=== PATIENT | female | born 1975 | race Caucasian/White ===

== ENCOUNTER 2017-08-20 17:30 | Inpatient (IN) ==
[2017-08-20] MEDS ORDERED: ALBUTEROL/IPRATROPIUM 3 ML NEB RESP TX STA (18:52)
[2017-08-20] MEDS ORDERED: methylPREDNISolone SOD SUC 125 MG/2 ML VIAL IV STA (18:52)
[2017-08-20] MEDS ORDERED: cefTRIAXone 1,000 MG in SODIUM CHLORIDE 0.9% 100 ML IV STA (18:52)
[2017-08-20] MEDS ORDERED: ACETAMINOPHEN 500 MG TABLET PO STA (18:52)
[2017-08-20] MEDS ORDERED: SODIUM CHLORIDE 0.9% 500 ML IV STA (18:52)
[2017-08-20 19:11] LABS: Basophils % 0.5 % (0.0-0.8); Eosinophils % 0.5 % (0.00-10.9); Hematocrit 31.3 VOL% (35.7-47.0); Hemoglobin 9.6 GM/DL (12.0-16.0); Immature Granulocytes % 0.3 %; Immature Granulocytes Absolute 0.02 #; Lymphocytes # 0.7 10*3/uL (1.4-4.0); Mean Corpuscular HGB Conc 30.7 GM/DL (32-36); Mean Corpuscular Hemoglobin 23 PG (27-34); Mean Corpuscular Volume 75.1 FL (87-102); Mean Platelet Volume 9.5 FL (9.6-12.0); Monocytes # 0.6 10*3/uL (0.11-0.8); Monocytes % 8.5 % (1.7-12.7); Neutrophils # 6.2 10*3/uL (1.4-7.4); Neutrophils % 81.2 % (38.7-73.9); Platelet Count 325 T/CUMM (130-400); Red Blood Count 4.17 MC/CUMM (3.8-5.5); Red Cell Distribution Width 17.6 % (9.3-17.3); White Blood Count 7.6 T/CUMM (4-12)
[2017-08-20 19:16] LABS: PT Patient Result 10.7 SECS
[2017-08-20] MEDS ORDERED: ACETAMINOPHEN 500 MG TABLET ONE (19:17)
[2017-08-20] MEDS ORDERED: cefTRIAXone 1,000 MG VIAL ONE (19:17)
[2017-08-20] MEDS ORDERED: methylPREDNISolone SOD SUC 125 MG/2 ML VIAL ONE (19:17)
[2017-08-20 19:25] LABS: Albumin 3.4 G/DL (3.4-5.0); Bilirubin,Total 0.4 MG/DL (0.2-1.0); Calcium 8.5 MG/DL (8.5-10.1); Osmolality,Calculated 267.2 MOS/KG (273-304); Potassium 3.9 MMOL/L (3.5-5.1); Total Protein 6.6 G/DL (6.4-8.3)
[2017-08-20 20:05] LABS: Sedimentation Rate-Westergren 13 MM/HR (0-20)
[2017-08-20] MEDS ORDERED: PIPERACILLIN/TAZOBACTAM 3,375 MG VIAL IV ONE (20:55)
[2017-08-20] MEDS ORDERED: ENOXAPARIN 100 MG/ML SYRINGE SUBCUT ONE (20:55)
[2017-08-20] MEDS ORDERED: PIPERACILLIN/TAZOBACTAM 3,375 MG in SODIUM CHLORIDE 0.9% 100 ML IV STA (20:56)
[2017-08-20] MEDS ORDERED: ENOXAPARIN 100 MG/ML SYRINGE SUBCUT STA (20:56)
[2017-08-20] MEDS ORDERED: ENOXAPARIN 40 MG/0.4 ML SYRINGE ONE (21:23)
[2017-08-20] MEDS ORDERED: ENOXAPARIN 40 MG/0.4 ML SYRINGE SUBCUT STA (21:32)
[2017-08-20] MEDS ORDERED: ONDANSETRON 4 MG/2 ML VIAL IV PRN (21:52)
[2017-08-20] MEDS ORDERED: ENOXAPARIN 100 MG/ML SYRINGE SUBCUT SCH (22:00)
[2017-08-20] MEDS ORDERED: ENOXAPARIN 60 MG/0.6 ML SYRINGE SUBCUT ONE (22:30)
[2017-08-20] MEDS ORDERED: INFLUENZA VIRUS VACCINE 0.5 ML SYRINGE IM ONE (23:36)
[2017-08-20] MEDS: SODIUM CHLORIDE 0.9% 1,000 ML IV SCH (23:47)
[2017-08-20] MEDS: LEVOFLOXACIN INJ 750 MG in PREMIX 1 EACH IV SCH (23:48)
[2017-08-21] MEDS: ALBUTEROL/IPRATROPIUM 3 ML NEB RESP TX SCH ×4 (01:16→20:32)
[2017-08-21 05:09] LABS: Basophils % 0.2 % (0.0-0.8); Hematocrit 28.2 VOL% (35.7-47.0); Hemoglobin 8.5 GM/DL (12.0-16.0); Immature Granulocytes % 0.2 %; Immature Granulocytes Absolute 0.01 #; Lymphocytes # 0.3 10*3/uL (1.4-4.0); Lymphocytes % 5.5 % (21.3-54.2); Mean Corpuscular HGB Conc 30.1 GM/DL (32-36); Mean Corpuscular Hemoglobin 23 PG (27-34); Mean Corpuscular Volume 75.2 FL (87-102); Mean Platelet Volume 9.6 FL (9.6-12.0); Monocytes # 0.1 10*3/uL (0.11-0.8); Monocytes % 1.9 % (1.7-12.7); Neutrophils # 4.9 10*3/uL (1.4-7.4); Neutrophils % 92.2 % (38.7-73.9); Platelet Count 314 T/CUMM (130-400); Red Blood Count 3.75 MC/CUMM (3.8-5.5); Red Cell Distribution Width 17.8 % (9.3-17.3); White Blood Count 5.3 T/CUMM (4-12)
[2017-08-21] MEDS: PIPERACILLIN/TAZOBACTAM 3,375 MG in SODIUM CHLORIDE 0.9% 100 ML IV SCH ×2 (05:31→15:39)
[2017-08-21 05:35] LABS: Calcium 8.1 MG/DL (8.5-10.1); Osmolality,Calculated 281.4 MOS/KG (273-304); Potassium 4.1 MMOL/L (3.5-5.1)
[2017-08-21 09:02] LABS: Hypochromasia 1+; Lymphocytes 4 % (20-55); Microcytosis 2+; Platelet Estimate Adequate; Segmented Neutrophils 96 % (50-85); Total Cells Counted 100
[2017-08-21] MEDS: ACETAMINOPHEN 325 MG TABLET PO PRN (09:06)
[2017-08-21] MEDS: ESTRADIOL 0.1 MG PATCH (1X WK) TRANSDERM SCH ×2 (09:07→09:11)
[2017-08-21] MEDS: FERROUS SULFATE 325 MG TABLET PO SCH ×3 (09:08→20:40)
[2017-08-21] MEDS ORDERED: ENOXAPARIN 100 MG/ML SYRINGE SUBCUT SCH (10:00)
[2017-08-21] MEDS ORDERED: oxyCODONE/ACETAMINOPHEN 5-325 MG TABLET PO PRN (13:16)
[2017-08-21 14:34] LABS: % Iron Saturation 23.2 % (18-50)
[2017-08-21 14:49] LABS: Folate 12.5 NG/ML (5.4-24.0)
[2017-08-21 15:35] LABS: ABG Base Excess -0.8 MMOL/L (-2.5-2.5); ABG HCO3 22.8 MMOL/L (20-26); ABG Oxygen Saturation 94.1 % (95-100); ABG PCO2 33.2 MM HG (35-48); ABG PH 7.455 (7.35-7.45); ABG PO2 67.1 MM HG (80-95); ABG TCO2 23.8 MMOL/L (23-27)
[2017-08-21] MEDS: SODIUM CHLORIDE 0.9% 1,000 ML IV SCH (15:36)
[2017-08-21] MEDS: LEVOFLOXACIN INJ 750 MG in PREMIX 1 EACH IV SCH (21:18)
[2017-08-22] MEDS: PIPERACILLIN/TAZOBACTAM 3,375 MG in SODIUM CHLORIDE 0.9% 100 ML IV SCH ×2 (00:04→08:14)
[2017-08-22] MEDS: ALBUTEROL/IPRATROPIUM 3 ML NEB RESP TX SCH ×4 (01:32→19:45)
[2017-08-22] MEDS: SODIUM CHLORIDE 0.9% 1,000 ML IV SCH ×3 (03:25→16:43)
[2017-08-22] MEDS: ACETAMINOPHEN 325 MG TABLET PO PRN (08:13)
[2017-08-22] MEDS: FERROUS SULFATE 325 MG TABLET PO SCH ×3 (08:13→21:23)
[2017-08-22] MEDS: OSELTAMIVIR 75 MG CAPSULE PO SCH ×2 (10:54→21:23)
[2017-08-22] MEDS: IBUPROFEN 600 MG TABLET PO SCH ×2 (15:28→21:23)
[2017-08-22] MEDS: LEVOFLOXACIN INJ 750 MG in PREMIX 1 EACH IV SCH (21:23)
[2017-08-23] MEDS: ALBUTEROL/IPRATROPIUM 3 ML NEB RESP TX SCH ×4 (01:43→20:02)
[2017-08-23] MEDS: IBUPROFEN 600 MG TABLET PO SCH ×3 (08:18→21:50)
[2017-08-23] MEDS: OSELTAMIVIR 75 MG CAPSULE PO SCH ×2 (08:18→21:51)
[2017-08-23] MEDS: FERROUS SULFATE 325 MG TABLET PO SCH ×3 (08:18→21:58)
[2017-08-23] MEDS: SODIUM CHLORIDE 0.9% 1,000 ML IV SCH ×2 (08:19→14:28)
[2017-08-23] MEDS: LEVOFLOXACIN INJ 750 MG in PREMIX 1 EACH IV SCH (21:58)
[2017-08-24] MEDS: ALBUTEROL/IPRATROPIUM 3 ML NEB RESP TX SCH ×2 (01:11→07:30)
[2017-08-24 07:00] LABS: Apearance,Urine CLEAR (Clear); Bilirubin,Urine Negative (Negative); Blood, Urine Negative (Negative); Glucose,Urine (UA) Negative (Negative); Ketones,Urine Negative (Negative); Mucus,Urine Occasional /LPF (Occasional); Nitrite,Urine Negative (Negative); Protein,Urine Negative; RBC,Urine <1 /HPF (0-4); Urine Color Straw (Yellow); Urine Specific Gravity 1.006 (1.001-1.035); Urine Urobilinogen < 2.0 EU/DL (0.2-1.0); WBC,Urine <1 /HPF (0-6)
[2017-08-24 07:35] VITALS: BP 106/58
[2017-08-24] MEDS: FERROUS SULFATE 325 MG TABLET PO SCH (09:05)
[2017-08-24] MEDS: OSELTAMIVIR 75 MG CAPSULE PO SCH (09:05)
[2017-08-24] MEDS: IBUPROFEN 600 MG TABLET PO SCH (09:05)
== END 2017-08-24 11:00 | disposition home or self-care (01) | DRG 153 ==
LOC: N.EDINP 17:30 → N.ED 17:30 → SUATTDRO 21:32 → N.TELES 21:56 → N.SDSINP 08-22 18:57 → N.5E 08-22 18:57 → UNDODISOB 08-24 11:00
PROVIDERS: ADMIT Internal Medicine; ATTEND Internal Medicine